=== PATIENT | female | born 2005 | race Caucasian/White ===

== ENCOUNTER 2025-03-25 06:10 | Day surgery (SDC) | payer OTHER, SELFPAY ==
[2025-03-25] VITALS (9 sets, daily range): BP systolic 91–119; BP diastolic 55–93; BMI 25.8
[2025-03-25] MEDS: NORMOSOL-R/PLASMALYTE-A 1000 IV (07:07)
[2025-03-25] MEDS: TYLENOL 1000 MG PO (07:14)
[2025-03-25] MEDS: TRANSDERM-SCOP 1 PATCH TRANSDERM (07:14)
[2025-03-25] MEDS: ROXICODONE 5 MG PO (09:30)
[2025-03-25] MEDS: ZOFRAN 4 MG IV (10:54)
== END 2025-03-25 11:20 | disposition home or self-care (01) ==
LOC: SDS 06:10
PROVIDERS: ATTENDING PHYSICIAN Otolaryngology
DX: J35.01 Chronic tonsillitis (principal); J35.3 Hypertrophy of tonsils with hypertrophy of adenoids
CPT/HCPCS: 42821; 88304